=== PATIENT | female | born 1970 | race Caucasian/White ===

== ENCOUNTER → 2016-11-17 | Outpatient (CLI) | payer BC ==
[~2016-11-17] MED LIST: ALBU8.5H6 IH; BIMA2.5D4 OP; CITA40TA5 PO; ESTR2TAB4 PO; ICOS1CAP PO; MINE473O2 PO; MNTL10T PO; MULT-955 PO; PROP10DR4 OP
--- NOTE | 2016-11-17 20:34 | Diagnostic Imaging Report ---
PROCEDURE: US Breast limited, left. TECHNIQUE: Multiple realtime grayscale images were obtained over the left breast in various projections. INDICATION: Pain in the lateral left breast. FINDINGS: Multiple real-time grayscale images are obtained through the lateral aspect of the left breast. Normal fibroglandular tissue was identified with no cyst, solid mass, or other lesion detected. IMPRESSION: 1. Negative targeted ultrasound of the left breast. Dictated by: Dictated on workstation # [id number]
--- NOTE | 2016-11-17 20:57 | Diagnostic Imaging Report ---
INDICATION: Left breast pain. Bilateral digital mammography with computer-assisted detection (CAD) is performed. COMPARISON: Film screen mammograms 09/30/2012, 01/23/2006. FINDINGS: Breasts are predominantly composed of fat. Right breast: No dominant mass, suspicious microcalcification, or other significant abnormality is identified. Left breast: Normal fibroglandular density pattern is present. At the lateral posterior breast, there is a 5 mm smoothly circumscribed nodule that is probably a small lymph node. There is no malignant finding identified. IMPRESSION: 1. Probable intramammary lymph node lateral left breast. Follow-up with mammography in six months. Otherwise unremarkable study. ACR BI-RADS Category 3: Probably benign findings. Result letter will be mailed to the patient. Note: At least 10% of breast cancer is not imaged by mammography. Dictated by: Dictated on workstation # [id number]
== END ==
LOC: RAD 12:52
PROVIDERS: ATTEND Family Medicine
DX: N64.4 Mastodynia (principal)
CPT/HCPCS: 76642; G0204